=== PATIENT | female | born 1965 | race Caucasian/White ===

== ENCOUNTER 2020-10-18 13:26 | Emergency (ER) | payer OTHER ==
[~2020-10-18] VITALS: Ht 165.1 cm; Wt 75.0 kg
[2020-10-18] MEDS ORDERED: ACETAMINOPHEN 325MG TABLET PO ONE (14:15)
[2020-10-18] MEDS ORDERED: CARBAMIDE PEROXIDE 6.5% OTIC SOLN 15ML LEFT EAR ONE (15:00)
[2020-10-18] MEDS ORDERED: OFLO5DRO4 LEFT EAR (16:05)
[2020-10-18] MEDS ORDERED: ACET-2708 MT (16:05)
[2020-10-18 16:32] VITALS: BP 143/93
== END 2020-10-18 16:33 | disposition home or self-care (01) ==
LOC: ER 13:26
DX: H60.92 Unspecified otitis externa, left ear (principal); Z88.0 Allergy status to penicillin; Z90.49 Acquired absence of other specified parts of digestive tract; Z90.89 Acquired absence of other organs
CPT/HCPCS: 99283

== ENCOUNTER 2021-02-12 22:27 | Emergency (ER) | payer OTHER ==
[~2021-02-12] VITALS: Ht 157.5 cm; Wt 84.0 kg
[~2021-02-12 22:27] MED LIST: ACET-2708 MT; OFLO5DRO4 LEFT EAR
[2021-02-13] MEDS ORDERED: METHOCARBAMOL 500MG TABLET PO ONE (01:00)
[2021-02-13] MEDS ORDERED: KETOROLAC 60MG/2ML VIAL IM ONE (01:00)
[2021-02-13] MEDS ORDERED: LIDOCAINE 5% PATCH TOP SCH (01:00)
[2021-02-13] MEDS ORDERED: TRAMADOL 50MG TABLET PO ONE (02:30)
[2021-02-13] MEDS ORDERED: GABAPENTIN 300MG CAPSULE PO ONE (02:30)
[2021-02-13] MEDS ORDERED: GABA-532 MT (03:24)
[2021-02-13] MEDS ORDERED: LIDO1ADH5 TP (03:24)
[2021-02-13] MEDS ORDERED: NAPR-681 MT (03:24)
[2021-02-13 03:37] VITALS: BP 149/84
== END 2021-02-13 03:38 | disposition home or self-care (01) ==
LOC: ER 22:27
DX: M54.89 Other dorsalgia (principal); M79.18 Myalgia, other site; M79.604 Pain in right leg
CPT/HCPCS: 96372; 99284; J1885

== ENCOUNTER 2021-09-27 12:49 | Emergency (ER) | payer OTHER ==
[~2021-09-27] VITALS: Ht 162.6 cm; Wt 58.0 kg
[~2021-09-27 12:49] MED LIST changes: +GABA-532 MT; +LIDO1ADH5 TP; +NAPR-681 MT
[2021-09-27] MEDS ORDERED: IBUPROFEN 800MG TABLET PO ONE (16:30)
[2021-09-27] MEDS ORDERED: LIDOCAINE HCL 1% 20ML VIAL (Pyxis) INJ INFIL ONE (16:45)
[2021-09-27] MEDS ORDERED: HYDROCODONE/ACETAMINOPHEN 5/325MG TABLET PO ONE (18:30)
[2021-09-27] MEDS ORDERED: CYCLOBENZAPRINE 10MG TABLET PO ONE (20:00)
[2021-09-27] MEDS ORDERED: MORPHINE SULFATE 10 MG/ML CPJ IM ONE (20:00)
[2021-09-27] MEDS ORDERED: LORAZEPAM 0.5MG TABLET PO ONE (20:00)
[2021-09-28] MEDS ORDERED: TETANUS, DIPHTHERIA, PERTUSSIS VAC/PF 0.5ML (>10YR OLD) IM ONE
[2021-09-28] MEDS ORDERED: KETAMINE HCL 50 MG/ML 10ML IV ONE (00:15)
[2021-09-28] MEDS ORDERED: ONDANSETRON HCL 4MG/2ML INJ IV ONE (00:15)
[2021-09-28] MEDS ORDERED: PROPOFOL 200MG/20ML VIAL IV ONE (00:15)
[2021-09-28] MEDS ORDERED: PROPOFOL 200MG/20ML VIAL IV NR (00:30)
[2021-09-28] MEDS ORDERED: CEFAZOLIN 1000MG PREMIX 50 ML IV ONE (01:30)
[2021-09-28] MEDS ORDERED: VANCOMYCIN 1G PREMIX 200 ML IV SCH (01:45)
[2021-09-28 05:50] VITALS: BP 132/82
== END 2021-09-28 05:56 | disposition home or self-care (01) ==
LOC: ER 12:49
DX: S63.286A Dislocation of proximal interphalangeal joint of right little finger, initial encounter (principal); S63.214A Subluxation of metacarpophalangeal joint of right ring finger, initial encounter; S61.214A Laceration without foreign body of right ring finger without damage to nail, initial encounter; W01.198A Fall on same level from slipping, tripping and stumbling with subsequent striking against other object, initial encounter; Y93.89 Activity, other specified; Y92.89 Other specified places as the place of occurrence of the external cause
CPT/HCPCS: 73130; 73140; 82962; 90471; 90715; 93005; 96365; 96372; 96375; 99152; 99285; J2270; J2405; J2704; J3370; J3490; Z7610

== ENCOUNTER 2022-07-10 15:34 | Emergency (ER) | payer OTHER ==
[~2022-07-10] VITALS: Ht 167.6 cm; Wt 99.0 kg
[2022-07-10 15:50] VITALS: BP 150/89
== END 2022-07-10 21:37 | disposition left against medical advice (07) ==
LOC: ER 15:51
DX: Z53.21 Procedure and treatment not carried out due to patient leaving prior to being seen by health care provider (principal)

== ENCOUNTER 2022-07-15 23:07 | Emergency (ER) | payer OTHER ==
[~2022-07-15] VITALS: Ht 157.5 cm; Wt 80.1 kg
[2022-07-16] MEDS ORDERED: IBUPROFEN 600MG TABLET PO STA (01:20)
[2022-07-16] MEDS ORDERED: ONDANSETRON 4MG ODT PO STA (01:20)
[2022-07-16 02:18] VITALS: BP 152/85
[2022-07-16 02:43] LABS: CLARITY URINE CLOUDY (CLEAR); COLOR URINE YELLOW (YELLOW); KETONES URINE NEGATIVE (NEGATIVE); LEUKOCYTE ESTERASE URINE 2+ (NEGATIVE); NITRITE URINE POSITIVE (NEGATIVE); OCCULT BLOOD URINE 2+ (NEGATIVE); PH URINE 5.5 (4.5-8.0); PROTEIN URINE NEGATIVE (NEGATIVE); SPECIFIC GRAVITY URINE 1.012 (1.005-1.030); UROBILINOGEN URINE 0.2 E.U./dL (0.2-1.0)
[2022-07-16] MEDS ORDERED: SULF1TAB48 PO (03:17)
[2022-07-16] MEDS ORDERED: NAPR-681 PO (03:17)
[2022-07-16] MEDS ORDERED: PYR200 PO (03:17)
[2022-07-16] MEDS ORDERED: ACETAMINOPHEN 325MG TABLET PO STA (03:57)
[2022-07-19] MEDS ORDERED: NITR100C PO (20:53)
[2022-07-19] MEDS ORDERED: AZIT250T12 MT (20:53)
[2022-07-19] MEDS ORDERED: ONDA4TAB50 PO (20:55)
== END 2022-07-16 04:24 | disposition home or self-care (01) ==
LOC: ER 23:07
DX: N39.0 Urinary tract infection, site not specified (principal); R03.0 Elevated blood-pressure reading, without diagnosis of hypertension
CPT/HCPCS: 81003; 87077; 87086; 87186; 99284; Q0162